=== PATIENT | female | born 1965 | race Caucasian/White ===

== ENCOUNTER 2024-05-16 18:03 | Emergency (ER) | payer OTHER, SELFPAY ==
[2024-05-16 18:11] VITALS: BP 139/78; PULSE 81; RESP 16; TEMP 36.8; O2SAT 100
[2024-05-16 18:17] VITALS: BP 139/78; PULSE 81; RESP 16; TEMP 36.8; O2SAT 100
--- NOTE | 2024-05-16 18:44 | ED.EAR ---
HPI - Ear Problem General Chief complaint: Ear Stated complaint: Ear Pain Time Seen by Provider: 05/16/24 18:31 Source: patient and RN notes reviewed Mode of arrival: ambulatory Limitations: no limitations History of Present Illness HPI Narrative: Patient presents today with a 4 day history of right ear pain. History of bilateral tympanoplasties, but states she needs to have her right ear redone. She has been taking ibuprofen with some little relief. She also has a headache and a one-week history of nasal congestion. Related Data Home Medications Medication Instructions Recorded Confirmed amlodipine 5 mg tablet mg 05/16/24 Allergies Allergy/AdvReac Type Severity Reaction Status Date / Time No Known Allergies Allergy Unverified 05/16/24 18:13 Review of Systems Review of Systems: CONSTITUTIONAL: Denies body aches, fever, chills, or sweats. EYES: Denies visual changes, redness, or discharge. ENT: Denies rhinorrhea, sore throat. + right ear pain, congestion CARDIOVASCULAR: Denies chest pain, palpitations, or edema. RESPIRATORY: Denies cough or dyspnea. GASTROINTESTINAL: Denies abdominal pain, nausea, vomiting, or diarrhea. GENITOURINARY: Denies dysuria or hematuria. SKIN: Denies rash, itching, or wounds. MUSCULOSKELETAL: Denies back pain, joint pain, or myalgia. NEUROLOGIC: Denies numbness, tingling, or weakness.+ headache PSYCH: Denies depression or anxiety. [facility] Surgical History Surgical History (Updated 05/16/24 @ 18:46 by Marlyn Bell, [facility], ) History of bilateral tympanoplasty Comments At time of signature, I have reviewed and agree with nursing past medical, surgical, social and family history unless otherwise noted. Please see nursing chart for further information. There is no relevant family history pertinent to the presenting complaint Exam Narrative: GENERAL: Well-appearing, well-nourished, and in no acute distress. HEAD: Normocephalic, atraumatic. EYES: EOMI. No redness or drainage. Conjunctivae normal. ENT: Mucous membranes pink and moist. Nares clear. No rhinorrhea. Left TM normal. Right ear: Movement and tragal tenderness. Moderate swelling of the left ear canal. Cerumen occludes visualization of the TM. Throat normal. Uvula midline. NECK: Normal AROM. CHEST: No respiratory distress. Clear to auscultation. HEART: Regular rate and rhythm. No murmur appreciated. ABDOMEN: Soft, nontender, nondistended, normal active bowel sounds. EXTREMITIES: Normal range of motion. No edema. SKIN: Warm, dry, no rash. Capillary refill normal. Normal skin turgor. NEURO: No focal deficits. Alert and oriented x3. Gait steady. PSYCH: Normal affect. No signs of depression or anxiety. Course Course Level of Care: Express Care Visit Vital Signs Vital signs: Vital Signs Temperature 98.3 F 05/16/24 18:11 Pulse Rate 81 05/16/24 18:11 Respiratory Rate 16 05/16/24 18:11 Blood Pressure 139/78 05/16/24 18:11 Pulse Oximetry 100 05/16/24 18:11 Oxygen Delivery Room Air 05/16/24 18:11 Temperature 98.3 F 05/16/24 18:17 Pulse Rate 81 05/16/24 18:17 Respiratory Rate 16 05/16/24 18:17 Blood Pressure 139/78 05/16/24 18:17 Pulse Oximetry 100 05/16/24 18:17 Oxygen Delivery Room Air 05/16/24 18:17 Reviewed Medical Decision Making MDM Narrative Medical decision making narrative: Patient will be treated with Ciprodex for her right otitis externa. She has been instructed to follow-up with her PCP early next week to ensure that this infection is resolving, given her history of chronic TM rupture. Patient agrees with plan. Anticipatory guidance given. Differential Diagnosis Differential Diagnosis: URI, otitis media, otitis externa, ruptured TM, serous otitis, cerumen impaction Vital Signs Vital Signs: Vital Signs Temperature 98.3 F 05/16/24 18:11 Pulse Rate 81 05/16/24 18:11 Respiratory Rate 16 05/16/24 18:11 Blood Pressure 1
== END 2024-05-16 18:54 | disposition home or self-care (01) ==
PROVIDERS: Emergency Provider Nurse Practitioner
DX: H60.501 Unspecified acute noninfective otitis externa, right ear (principal)
CPT/HCPCS: 99203; G0463